=== PATIENT | female | born 2000 | race Caucasian/White ===

== ENCOUNTER → 2020-07-14 | Outpatient (CLI) | payer OTHER | LOC: LAB 16:02 | DX: R30.0 Dysuria (principal) | CPT/HCPCS: 87077; 87088; 87186 ==

== ENCOUNTER → 2022-11-02 | Outpatient (CLI) | payer BC ==
--- NOTE | 2022-11-02 20:26 | Diagnostic Imaging Report ---
INDICATION: Poor growth. TECHNIQUE: Multiple real-time grayscale images were obtained over the gravid uterus. COMPARISON: None FINDINGS: [facility] viable IUP is in cephalic position. Measurements correlate with an age 29 weeks 3 days. Sonographic date of confinement is 01/15/2023. Positioning is cephalic. Amniotic fluid index is 6.9. The posterior placenta appeared normal. No abruption or previa. There is a regular heart rate of 127 BPM. The cervix is nondilated at 4.2 cm. There is no abruption or previa. [facility] gestation receives a normal 8/8 biophysical profile with umbilical cord showing S/D ratio of 4.4 on the end, 2.1 in the mid segment, and 2.3 cm at the placental end. Estimated weight based on LMP percentile is at the 2 percentile. IMPRESSION: 1. Gestation measures 29 weeks 3 days at the 2 percentile measurement for LMP with the clinical age of 34 weeks 3 days 2. Normal 8/8 biophysical profile with abnormal cord Doppler as described. Biometrical measurements are as follows: Biparietal 7.21 cm, age 29 weeks 0 days. Head circumference 27.65 cm, age 30 weeks 2 days. Abdominal circumference 23.37 cm, age 27 weeks 5 days. Femur length 5.81 cm, age 30 weeks 3 days. Sonographic estimate age: 29 weeks 3 days. Sonographic estimated date of delivery: 01/15/2023. Estimated Weight: 1309 gm (+/- 192 gm). LMP percentile: 2%. heart rate: 127 beats per minute. number: 1 of 1. Dictated by: Dictated on workstation # [id number]
== END ==
LOC: RAD 08:59
PROVIDERS: ATTEND Student in an Organized Health Care Education/Training Program
DX: O36.5990 Maternal care for other known or suspected poor fetal growth, unspecified trimester, not applicable or unspecified (principal); Z3A.29 29 weeks gestation of pregnancy
CPT/HCPCS: 76805; 76819

== ENCOUNTER → 2022-11-09 | Outpatient (CLI) | payer BC ==
--- NOTE | 2022-11-09 16:33 | Diagnostic Imaging Report ---
INDICATION: Poor growth. TECHNIQUE: Multiple real-time grayscale images were obtained over the gravid uterus. COMPARISON: None. FINDINGS: Fetus is in cephalic presentation. This results in suboptimal visualization of the cervix, which measures approximately 3.5 cm. Placenta is posteriorly positioned and there are no features of previa. Due to advanced gestational age, maternal adnexa are not well visualized. The JORGE is normal at 6.6 cm. There is positive end-diastolic flow within the umbilical vein at the placenta end, end and mid cord. Biometrical measurements are as follows: Biparietal 7.38 cm, age 29 weeks 5 days. Head circumference 28.19 cm, age 31 weeks 0 days. Abdominal circumference 24.67 cm, age 29 weeks 0 days. Femur length 6.00 cm, age 31 weeks 2 days. Sonographic estimate age: 30 weeks 2 days. Sonographic estimated date of delivery: 01/16/2023. Estimated Weight: 1478 gm (+/- 216 gm). Previously 1309 g LMP percentile: <2%. heart rate: 139 beats per minute. number: 1 of 1. IMPRESSION: 1. The fetus remains small, although does show greater than one week of growth since prior examination. Dictated by: Dictated on workstation # [id number]
== END ==
LOC: RAD 09:00
PROVIDERS: ATTEND Student in an Organized Health Care Education/Training Program
DX: O36.5990 Maternal care for other known or suspected poor fetal growth, unspecified trimester, not applicable or unspecified (principal); Z3A.30 30 weeks gestation of pregnancy
CPT/HCPCS: 76805; 76819